=== PATIENT | male | born 1945 | race Caucasian/White ===

== ENCOUNTER 2018-10-15 20:17 | Inpatient (IN) | payer MEDICARE ==
[~2018-10-15] VITALS: Ht 177.8 cm; Wt 62.6 kg
[2018-10-15] MEDS ORDERED: ACET-2154 PO (20:38)
[2018-10-15 21:05] LABS: BASOPHILS % (AUTO) 0.3 % (0.0-2.0); EOSINOPHILS # (AUTO) 0.1 K/uL (0.0-0.7); EOSINOPHILS % (AUTO) 2.2 % (0.0-7.0); HEMOGLOBIN 9.7 g/dL (12.5-16.3); LYMPHOCYTES % (AUTO) 16.8 % (20.5-51.5); MEAN CORPUSCULAR HEMOGLOBIN 29.1 uug (23.8-33.4); MEAN CORPUSCULAR HGB CONC 33 g/dL (32.5-36.3); MEAN CORPUSCULAR VOLUME 87.4 fL (73.0-96.2); MONOCYTES # (AUTO) 0.6 K/uL (2.0-10.0); MONOCYTES % (AUTO) 10.2 % (0.0-11.0); NEUTROPHILS # (AUTO) 4.3 K/uL (1.8-8.9); NEUTROPHILS % (AUTO) 70.5 % (38.5-71.5); PLATELET COUNT (AUTO) 137 K/uL (152-348); RED BLOOD CELL COUNT(AUTO) 3.32 MIL/uL (4.06-5.63); WHITE BLOOD COUNT (AUTO) 6.1 K/uL (3.6-10.2)
[2018-10-15 21:10] LABS: CARBON DIOXIDE 24 mmol/L (21-32); CHLORIDE 108 mmol/L (98-107); CREATININE 2.7 mg/dL (0.6-1.3); GLUCOSE 96 mg/dL (74-106); POTASSIUM 3.9 mmol/L (3.5-5.1); UREA NITROGEN, BLOOD 29 mg/dL (7-18)
[2018-10-15] MEDS ORDERED: LACT-47 PO (21:12)
[2018-10-15] MEDS ORDERED: ALLO100T PO (21:12)
[2018-10-15] MEDS ORDERED: BISA10SU12 RC (21:12)
[2018-10-15] MEDS ORDERED: CLON0.1T PO (21:12)
[2018-10-15] MEDS ORDERED: CALC-494 PO (21:12)
[2018-10-15] MEDS ORDERED: PROC10TA29 PO (21:12)
[2018-10-15] MEDS ORDERED: EPOE4000 IJ (21:12)
[2018-10-15] MEDS ORDERED: AMYL1CAP56 PO (21:12)
[2018-10-15] MEDS ORDERED: VENL37.515 PO (21:13)
[2018-10-15 21:16] LABS: *BILIRUBIN,URIN NEGATIVE (NEGATIVE); *BLOOD, URINE 2+ (NEGATIVE); *CLARITY,URINE CLOUDY (CLEAR); *COLOR,URINE YELLOW (YELLOW); *KETONES,URINE NEGATIVE (NEGATIVE); *UROBILINOGEN,URINE 0.2 E.U./dl (NORMAL); NITRITE, URINE POSITIVE (NEGATIVE); PH,URINE 5.5 (5.0-8.0); UGLUCOSE NEGATIVE (NEGATIVE)
[2018-10-15 21:16] LABS: ALANINE AMINOTRANSFERASE 9 U/L (16-63); ALKALINE PHOSPHATASE 73 U/L (50-136); ASPARTATE AMINOTRANSFERASE 11 U/L (15-37); BILIRUBIN,DIRECT 0.1 mg/dL (0.0-0.2); BILIRUBIN,TOTAL 0.3 mg/dL (0.2-1.0); TOTAL PROTEIN, SERUM 6.2 g/dL (6.4-8.2)
[2018-10-15 21:17] LABS: ACETAMINOPHEN < 2.0 ug/mL (10-30)
[2018-10-15 21:19] LABS: ETHANOL < 3 MG/DL (0-0)
[2018-10-15 21:22] LABS: LEUKOCYTE ESTERASE ,URINE 2+ (NEGATIVE)
[2018-10-15 21:24] LABS: BACTERIA,URINE MANY /HPF (NONE SEEN); WBC,URINE 80-100 /HPF (0-3)
[2018-10-15 21:27] LABS: *AMPHETAMINE, URINE NEGATIVE (NEGATIVE); *BARBITURATE, URINE NEGATIVE (NEGATIVE); *CANNABINOID, URINE NEGATIVE (NEGATIVE); *COCCAINE, URINE NEGATIVE (NEGATIVE); *OPIATE, URINE NEGATIVE (NEGATIVE); *PHENCYCLIDINE SCREEN,URINE NEGATIVE (NEGATIVE)
[2018-10-15] MEDS ORDERED: CEFTRIAXONE 1 G VIAL IM ONE (21:30)
[2018-10-15] MEDS ORDERED: FINA5TAB11 PO (21:33)
[2018-10-15] MEDS ORDERED: SACC250C PO (21:33)
[2018-10-15] MEDS ORDERED: TAMS-3 PO (21:33)
[2018-10-15] MEDS ORDERED: FERR325C PO (21:33)
[2018-10-15] MEDS ORDERED: NA P133E RC (21:33)
[2018-10-15] MEDS ORDERED: CEFTRIAXONE 1 G VIAL ONE (21:36)
[2018-10-15] MEDS ORDERED: LIDOCAINE HCL 1% 20 ML VIAL ONE (21:36)
[2018-10-15] MEDS ORDERED: FOLI1TAB16 PO (21:39)
[2018-10-15] MEDS ORDERED: MULT1TAB11 PO (21:39)
[2018-10-15] MEDS ORDERED: MELA1TAB PO (21:39)
[2018-10-15] MEDS ORDERED: MAGN400O6 PO (21:39)
[2018-10-15] MEDS ORDERED: GUAI118.5 PO (21:39)
[2018-10-15] MEDS ORDERED: OXYM30SP NS (21:39)
[2018-10-15] MEDS ORDERED: AMLO5TAB4 PO (21:39)
[2018-10-15] MEDS ORDERED: IPRA3AMP18 IH (21:39)
[2018-10-15] MEDS ORDERED: THIA100T13 PO (21:39)
[2018-10-15] MEDS ORDERED: METO25TA6 PO (21:39)
[2018-10-15] MEDS ORDERED: TRAM50TA PO (21:39)
[2018-10-15] MEDS ORDERED: LOPE2CAP40 PO (21:39)
[2018-10-15] MEDS ORDERED: ZOLPIDEM 5 MG TABLET PO PRN (22:00)
[2018-10-15] MEDS ORDERED: ACETAMINOPHEN 325 MG TABLET PO PRN (22:00)
[2018-10-15] MEDS ORDERED: MAG HYDROX/AL HYDROX/SIMETH 30 ML LIQUID UDC PO PRN (22:00)
[2018-10-15] MEDS ORDERED: MAGNESIUM HYDROXIDE 30 ML LIQUID UDC PO PRN (22:00)
[2018-10-15] MEDS ORDERED: hydrALAZINE HCL 10 MG TABLET PO ONE (22:35)
[2018-10-15] MEDS ORDERED: FLEET ENEMA 133 ML BOTTLE RC SCH (22:45)
[2018-10-15] MEDS ORDERED: GUAIFENESIN/DEXTROMETHORPHAN 5 ML UDC PO SCH (22:45)
[2018-10-15] MEDS ORDERED: BISACODYL 10 MG SUPP.RECT RC SCH (22:45)
[2018-10-15] MEDS ORDERED: OXYMETAZOLINE NASAL 0.05% 15 ML SPRAY NS PRN (22:45)
[2018-10-15] MEDS ORDERED: MAGNESIUM HYDROXIDE 30 ML LIQUID UDC PO SCH (22:45)
[2018-10-15] MEDS ORDERED: PROCHLORPERAZINE MALEATE 10 MG TABLET PO SCH (22:45)
[2018-10-15] MEDS ORDERED: TRAMADOL HCL 50 MG TABLET PO SCH (22:45)
[2018-10-15] MEDS ORDERED: ACETAMINOPHEN 325 MG TABLET PO SCH (22:45)
[2018-10-15] MEDS ORDERED: LOPERAMIDE HCL 2 MG CAPSULE PO SCH (22:45)
[2018-10-16 04:44] VITALS: BP 170/85
[2018-10-16 07:58] VITALS: BP 183/90
[2018-10-16] MEDS: FOLIC ACID 1 MG TABLET PO SCH (08:34)
[2018-10-16] MEDS: MULTIVIT, IRON, MIN NO. 8, FA TABLET PO SCH (08:34)
[2018-10-16] MEDS: THIAMINE HCL 100 MG TABLET PO SCH (08:34)
[2018-10-16] MEDS: FINASTERIDE 5 MG TABLET PO SCH (08:34)
[2018-10-16] MEDS: FERROUS SULFATE 325 MG TABEC PO SCH ×2 (08:34→18:01)
[2018-10-16] MEDS: TAMSULOSIN HCL 0.4 MG CAP.SR.24H PO SCH (08:34)
[2018-10-16] MEDS: CALCIUM CARBONATE 500 MG TABLET PO SCH (08:34)
[2018-10-16] MEDS: METOPROLOL TARTRATE 25 MG TABLET PO SCH ×2 (08:35→16:24)
[2018-10-16] MEDS: AMLODIPINE 5 MG TABLET PO SCH (08:36)
[2018-10-16] MEDS ORDERED: Medication Not On Formulary EA (Saccharomyces Boulardii (Florastor) 250 MG) PO SCH (09:00)
[2018-10-16] MEDS: NICOTINE 14 MG/24HR PATCH TD SCH (09:00)
[2018-10-16] MEDS ORDERED: COMPLEAT MODIFIED FORMULA 1000 ML LIQUID PO SCH (09:00)
[2018-10-16] MEDS: LIPASE/PROTEASE/AMYLASE 4200 UNITS CAPSULE.DR PO SCH ×3 (10:34→16:45)
[2018-10-16] MEDS: CULTURELLE CAPSULE PO SCH ×2 (10:35→20:13)
[2018-10-16] MEDS: CEphaleXIN 500 MG CAPSULE PO SCH ×2 (11:36→16:23)
[2018-10-16 16:17] VITALS: BP 183/89
[2018-10-16] MEDS: CLONIDINE HCL 0.1 MG TABLET PO SCH (16:24)
[2018-10-16 19:44] VITALS: BP 144/76
[2018-10-16] MEDS: QUETIAPINE FUMARATE 25 MG TABLET PO SCH (20:13)
[2018-10-16] MEDS: MELATONIN 3 MG TABLET PO SCH (20:13)
[2018-10-17 06:20] LABS: BASOPHILS % (AUTO) 0.2 % (0.0-2.0); EOSINOPHILS # (AUTO) 0.2 K/uL (0.0-0.7); HEMATOCRIT 27.9 % (36.7-47.1); HEMOGLOBIN 9.3 g/dL (12.5-16.3); LYMPHOCYTES # (AUTO) 0.9 K/uL (20.0-40.0); LYMPHOCYTES % (AUTO) 15.4 % (20.5-51.5); MEAN CORPUSCULAR HEMOGLOBIN 29.3 uug (23.8-33.4); MEAN CORPUSCULAR HGB CONC 34 g/dL (32.5-36.3); MEAN CORPUSCULAR VOLUME 87.5 fL (73.0-96.2); MONOCYTES # (AUTO) 0.6 K/uL (2.0-10.0); MONOCYTES % (AUTO) 10.4 % (0.0-11.0); NEUTROPHILS # (AUTO) 4.2 K/uL (1.8-8.9); PLATELET COUNT (AUTO) 132 K/uL (152-348); RED BLOOD CELL COUNT(AUTO) 3.19 MIL/uL (4.06-5.63); WHITE BLOOD COUNT (AUTO) 5.9 K/uL (3.6-10.2)
[2018-10-17 06:58] LABS: IRON, SERUM 37 ug/dL (50-175)
[2018-10-17 07:02] LABS: ALANINE AMINOTRANSFERASE 8 U/L (16-63); ALKALINE PHOSPHATASE 76 U/L (50-136); ASPARTATE AMINOTRANSFERASE 10 U/L (15-37); BILIRUBIN,TOTAL 0.4 mg/dL (0.2-1.0); CARBON DIOXIDE 25 mmol/L (21-32); CHLORIDE 108 mmol/L (98-107); CREATININE 2.9 mg/dL (0.6-1.3); FERRITIN 58 ng/mL (26-388); GLUCOSE 95 mg/dL (74-106); MAGNESIUM 1.6 mg/dL (1.8-2.4); PHOSPHOROUS 3.9 mg/dL (2.5-4.9); TOTAL PROTEIN, SERUM 5.9 g/dL (6.4-8.2); UREA NITROGEN, BLOOD 34 mg/dL (7-18)
[2018-10-17 07:37] LABS: CREATINE KINASE, TOTAL 89 U/L (39-308)
[2018-10-17 08:23] VITALS: BP 169/80
[2018-10-17] MEDS: FOLIC ACID 1 MG TABLET PO SCH (08:24)
[2018-10-17] MEDS: CEphaleXIN 500 MG CAPSULE PO SCH ×2 (08:24→16:25)
[2018-10-17] MEDS: VENLAFAXINE XR 37.5 MG CAP.SR.24H PO SCH (08:25)
[2018-10-17] MEDS: MULTIVIT, IRON, MIN NO. 8, FA TABLET PO SCH (08:25)
[2018-10-17] MEDS: METOPROLOL TARTRATE 25 MG TABLET PO SCH (08:26)
[2018-10-17] MEDS: TAMSULOSIN HCL 0.4 MG CAP.SR.24H PO SCH (08:26)
[2018-10-17] MEDS: AMLODIPINE 5 MG TABLET PO SCH (08:27)
[2018-10-17] MEDS: THIAMINE HCL 100 MG TABLET PO SCH (08:27)
[2018-10-17] MEDS: FERROUS SULFATE 325 MG TABEC PO SCH ×2 (08:27→17:14)
[2018-10-17] MEDS: CULTURELLE CAPSULE PO SCH ×2 (08:28→20:15)
[2018-10-17] MEDS: CALCIUM CARBONATE 500 MG TABLET PO SCH (08:28)
[2018-10-17] MEDS: FINASTERIDE 5 MG TABLET PO SCH (08:29)
[2018-10-17] MEDS: LIPASE/PROTEASE/AMYLASE 4200 UNITS CAPSULE.DR PO SCH ×3 (08:29→16:25)
[2018-10-17] MEDS: NICOTINE 14 MG/24HR PATCH TD SCH (09:00)
[2018-10-17] MEDS ORDERED: MAGNESIUM OXIDE 400 MG TABLET PO ONE (09:00)
[2018-10-17 16:21] VITALS: BP 168/73
[2018-10-17] MEDS: METOPROLOL TARTRATE 50 MG TABLET PO SCH (16:26)
[2018-10-17] MEDS: CLONIDINE HCL 0.1 MG TABLET PO SCH (16:27)
[2018-10-17] MEDS ORDERED: METOPROLOL TARTRATE 25 MG TABLET PO SCH (17:00)
[2018-10-17 19:43] VITALS: BP 148/70
[2018-10-17] MEDS: MELATONIN 3 MG TABLET PO SCH (20:11)
[2018-10-17] MEDS: QUETIAPINE FUMARATE 25 MG TABLET PO SCH (20:14)
[2018-10-18 06:42] LABS: BASOPHILS % (AUTO) 0.3 % (0.0-2.0); EOSINOPHILS # (AUTO) 0.2 K/uL (0.0-0.7); EOSINOPHILS % (AUTO) 3.3 % (0.0-7.0); HEMATOCRIT 26.7 % (36.7-47.1); HEMOGLOBIN 8.9 g/dL (12.5-16.3); LYMPHOCYTES % (AUTO) 18.9 % (20.5-51.5); MEAN CORPUSCULAR HEMOGLOBIN 29.2 uug (23.8-33.4); MEAN CORPUSCULAR HGB CONC 33 g/dL (32.5-36.3); MEAN CORPUSCULAR VOLUME 87.5 fL (73.0-96.2); MONOCYTES # (AUTO) 0.6 K/uL (2.0-10.0); MONOCYTES % (AUTO) 10.8 % (0.0-11.0); NEUTROPHILS # (AUTO) 3.7 K/uL (1.8-8.9); NEUTROPHILS % (AUTO) 66.7 % (38.5-71.5); PLATELET COUNT (AUTO) 128 K/uL (152-348); RED BLOOD CELL COUNT(AUTO) 3.06 MIL/uL (4.06-5.63); WHITE BLOOD COUNT (AUTO) 5.5 K/uL (3.6-10.2)
[2018-10-18 07:03] LABS: CARBON DIOXIDE 24 mmol/L (21-32); CHLORIDE 108 mmol/L (98-107); CREATININE 2.8 mg/dL (0.6-1.3); GLUCOSE 96 mg/dL (74-106); MAGNESIUM 1.9 mg/dL (1.8-2.4); PHOSPHOROUS 3.9 mg/dL (2.5-4.9); POTASSIUM 4.1 mmol/L (3.5-5.1); UREA NITROGEN, BLOOD 39 mg/dL (7-18)
[2018-10-18 07:30] VITALS: BP 158/75
[2018-10-18] MEDS: CEphaleXIN 500 MG CAPSULE PO SCH ×2 (08:36→20:30)
[2018-10-18] MEDS: METOPROLOL TARTRATE 50 MG TABLET PO SCH ×2 (08:36→17:01)
[2018-10-18] MEDS: THIAMINE HCL 100 MG TABLET PO SCH (08:36)
[2018-10-18] MEDS: AMLODIPINE 10 MG TABLET PO SCH (08:36)
[2018-10-18] MEDS: FOLIC ACID 1 MG TABLET PO SCH (08:36)
[2018-10-18] MEDS: TAMSULOSIN HCL 0.4 MG CAP.SR.24H PO SCH (08:36)
[2018-10-18] MEDS: MULTIVIT, IRON, MIN NO. 8, FA TABLET PO SCH (08:36)
[2018-10-18] MEDS: VENLAFAXINE XR 37.5 MG CAP.SR.24H PO SCH (08:37)
[2018-10-18] MEDS: FERROUS SULFATE 325 MG TABEC PO SCH ×2 (08:37→17:01)
[2018-10-18] MEDS: CULTURELLE CAPSULE PO SCH ×2 (08:38→20:30)
[2018-10-18] MEDS: NICOTINE 14 MG/24HR PATCH TD SCH (08:39)
[2018-10-18] MEDS: CALCIUM CARBONATE 500 MG TABLET PO SCH (08:40)
[2018-10-18] MEDS: LIPASE/PROTEASE/AMYLASE 4200 UNITS CAPSULE.DR PO SCH ×3 (08:40→17:03)
[2018-10-18] MEDS ORDERED: AMLODIPINE 5 MG TABLET PO SCH (09:00)
[2018-10-18] MEDS: FINASTERIDE 5 MG TABLET PO SCH (09:00)
[2018-10-18 16:00] VITALS: BP 145/68
[2018-10-18 20:10] VITALS: BP 123/81
[2018-10-18] MEDS: MELATONIN 3 MG TABLET PO SCH (20:30)
[2018-10-18] MEDS: QUETIAPINE FUMARATE 25 MG TABLET PO SCH (20:30)
[2018-10-19 07:30] VITALS: BP 114/78
[2018-10-19] MEDS: VENLAFAXINE XR 37.5 MG CAP.SR.24H PO SCH (08:34)
[2018-10-19] MEDS: MULTIVIT, IRON, MIN NO. 8, FA TABLET PO SCH (08:34)
[2018-10-19] MEDS: FERROUS SULFATE 325 MG TABEC PO SCH ×2 (08:34→17:02)
[2018-10-19] MEDS: AMLODIPINE 10 MG TABLET PO SCH (08:34)
[2018-10-19] MEDS: THIAMINE HCL 100 MG TABLET PO SCH (08:34)
[2018-10-19] MEDS: TAMSULOSIN HCL 0.4 MG CAP.SR.24H PO SCH (08:34)
[2018-10-19] MEDS: CEphaleXIN 500 MG CAPSULE PO SCH ×2 (08:35→20:18)
[2018-10-19] MEDS: FOLIC ACID 1 MG TABLET PO SCH (08:35)
[2018-10-19] MEDS: METOPROLOL TARTRATE 50 MG TABLET PO SCH ×2 (08:35→17:02)
[2018-10-19] MEDS: CULTURELLE CAPSULE PO SCH ×2 (08:37→20:25)
[2018-10-19] MEDS: FINASTERIDE 5 MG TABLET PO SCH (08:37)
[2018-10-19] MEDS: CALCIUM CARBONATE 500 MG TABLET PO SCH (08:37)
[2018-10-19] MEDS: LIPASE/PROTEASE/AMYLASE 4200 UNITS CAPSULE.DR PO SCH ×3 (08:38→17:03)
[2018-10-19] MEDS: NICOTINE 14 MG/24HR PATCH TD SCH (08:38)
[2018-10-19 15:19] VITALS: BP 160/74
[2018-10-19 20:16] VITALS: BP 136/70
[2018-10-19] MEDS: QUETIAPINE FUMARATE 25 MG TABLET PO SCH (20:18)
[2018-10-19] MEDS: MELATONIN 3 MG TABLET PO SCH (20:25)
[2018-10-19] MEDS: LORAZEPAM 0.5 MG TABLET PO PRN (22:18)
[2018-10-20 05:09] LABS: A/G RATIO 1.2 (0.7-1.7); ALBUMIN 3.1 g/dL (2.9-4.4); ALPHA-1-GLOBULIN 0.2 g/dL (0.0-0.4); ALPHA-2-GLOBULIN 0.6 g/dL (0.4-1.0); BETA GLOBULIN 0.8 g/dL (0.7-1.3); GAMMA GLOBULIN 0.9 g/dL (0.4-1.8); GLOBULIN, TOTAL 2.6 g/dL (2.2-3.9); M-SPIKE Not Observed g/dL (Not Observed)
[2018-10-20 07:30] VITALS: BP 153/71
[2018-10-20] MEDS: FINASTERIDE 5 MG TABLET PO SCH (08:28)
[2018-10-20] MEDS: LIPASE/PROTEASE/AMYLASE 4200 UNITS CAPSULE.DR PO SCH ×3 (08:28→17:17)
[2018-10-20] MEDS: CULTURELLE CAPSULE PO SCH ×2 (08:28→21:16)
[2018-10-20] MEDS: CALCIUM CARBONATE 500 MG TABLET PO SCH (08:28)
[2018-10-20] MEDS: VENLAFAXINE XR 37.5 MG CAP.SR.24H PO SCH (08:29)
[2018-10-20] MEDS: AMLODIPINE 10 MG TABLET PO SCH (08:29)
[2018-10-20] MEDS: THIAMINE HCL 100 MG TABLET PO SCH (08:29)
[2018-10-20] MEDS: CEphaleXIN 500 MG CAPSULE PO SCH ×2 (08:30→21:16)
[2018-10-20] MEDS: METOPROLOL TARTRATE 50 MG TABLET PO SCH ×2 (08:30→17:15)
[2018-10-20] MEDS: FOLIC ACID 1 MG TABLET PO SCH (08:30)
[2018-10-20] MEDS: FERROUS SULFATE 325 MG TABEC PO SCH ×2 (08:30→17:16)
[2018-10-20] MEDS: MULTIVIT, IRON, MIN NO. 8, FA TABLET PO SCH (08:30)
[2018-10-20] MEDS: NICOTINE 14 MG/24HR PATCH TD SCH (08:30)
[2018-10-20] MEDS: TAMSULOSIN HCL 0.4 MG CAP.SR.24H PO SCH (08:30)
[2018-10-20] MEDS ORDERED: PROCHLORPERAZINE MALEATE 10 MG TABLET PO PRN (13:38)
[2018-10-20 15:34] VITALS: BP 149/66
[2018-10-20 19:44] VITALS: BP 146/75
[2018-10-20] MEDS: QUETIAPINE FUMARATE 25 MG TABLET PO SCH (21:16)
[2018-10-20] MEDS: MELATONIN 3 MG TABLET PO SCH (21:17)
[2018-10-20] MEDS: LORAZEPAM 0.5 MG TABLET PO PRN (23:39)
[2018-10-21 07:54] VITALS: BP 116/71
[2018-10-21] MEDS: FOLIC ACID 1 MG TABLET PO SCH (09:00)
[2018-10-21] MEDS: CEphaleXIN 500 MG CAPSULE PO SCH (09:00)
[2018-10-21] MEDS: TAMSULOSIN HCL 0.4 MG CAP.SR.24H PO SCH (09:00)
[2018-10-21] MEDS: NICOTINE 14 MG/24HR PATCH TD SCH (09:00)
[2018-10-21] MEDS: VENLAFAXINE XR 37.5 MG CAP.SR.24H PO SCH (09:00)
[2018-10-21] MEDS: MULTIVIT, IRON, MIN NO. 8, FA TABLET PO SCH (09:00)
[2018-10-21] MEDS: THIAMINE HCL 100 MG TABLET PO SCH (09:00)
[2018-10-21] MEDS: FERROUS SULFATE 325 MG TABEC PO SCH ×2 (09:00→17:16)
[2018-10-21] MEDS: CULTURELLE CAPSULE PO SCH ×2 (09:01→20:14)
[2018-10-21] MEDS: FINASTERIDE 5 MG TABLET PO SCH (09:01)
[2018-10-21] MEDS: CALCIUM CARBONATE 500 MG TABLET PO SCH (09:02)
[2018-10-21] MEDS: LIPASE/PROTEASE/AMYLASE 4200 UNITS CAPSULE.DR PO SCH ×3 (09:02→17:23)
[2018-10-21] MEDS: AMLODIPINE 10 MG TABLET PO SCH (09:03)
[2018-10-21] MEDS: METOPROLOL TARTRATE 50 MG TABLET PO SCH ×2 (09:04→17:18)
[2018-10-21 15:40] VITALS: BP 139/63
[2018-10-21 19:51] VITALS: BP 143/87
[2018-10-21] MEDS: QUETIAPINE FUMARATE 25 MG TABLET PO SCH (20:14)
[2018-10-21] MEDS: MELATONIN 3 MG TABLET PO SCH (20:14)
[2018-10-21 21:33] VITALS: BP 121/64
[2018-10-22] MEDS: NICOTINE 14 MG/24HR PATCH TD SCH (09:00)
[2018-10-22] MEDS: LIPASE/PROTEASE/AMYLASE 4200 UNITS CAPSULE.DR PO SCH ×3 (09:13→16:29)
[2018-10-22] MEDS: CULTURELLE CAPSULE PO SCH ×2 (09:13→21:18)
[2018-10-22] MEDS: TAMSULOSIN HCL 0.4 MG CAP.SR.24H PO SCH (09:13)
[2018-10-22] MEDS: FINASTERIDE 5 MG TABLET PO SCH (09:14)
[2018-10-22] MEDS: THIAMINE HCL 100 MG TABLET PO SCH (09:14)
[2018-10-22] MEDS: FERROUS SULFATE 325 MG TABEC PO SCH ×2 (09:14→17:27)
[2018-10-22] MEDS: MULTIVIT, IRON, MIN NO. 8, FA TABLET PO SCH (09:14)
[2018-10-22] MEDS: FOLIC ACID 1 MG TABLET PO SCH (09:14)
[2018-10-22] MEDS: CALCIUM CARBONATE 500 MG TABLET PO SCH (09:14)
[2018-10-22 09:23] LABS: CARBON DIOXIDE 27 mmol/L (21-32); CHLORIDE 106 mmol/L (98-107); CREATININE 2.7 mg/dL (0.6-1.3); GLUCOSE 96 mg/dL (74-106); POTASSIUM 4.3 mmol/L (3.5-5.1); UREA NITROGEN, BLOOD 44 mg/dL (7-18)
[2018-10-22] MEDS: AMLODIPINE 10 MG TABLET PO SCH (09:25)
[2018-10-22] MEDS: METOPROLOL TARTRATE 50 MG TABLET PO SCH ×2 (09:27→16:30)
[2018-10-22] MEDS ORDERED: TRAMADOL HCL 50 MG TABLET PO PRN (10:43)
[2018-10-22] MEDS ORDERED: GUAIFENESIN/DEXTROMETHORPHAN 5 ML UDC PO PRN (10:44)
[2018-10-22] MEDS ORDERED: BISACODYL 10 MG SUPP.RECT RC PRN (10:44)
[2018-10-22 10:49] VITALS: BP 159/71
[2018-10-22] MEDS: VENLAFAXINE XR 37.5 MG CAP.SR.24H PO SCH (11:01)
[2018-10-22] MEDS ORDERED: AMLO10TA7 PO (12:07)
[2018-10-22] MEDS ORDERED: METO50TA16 PO (12:07)
[2018-10-22 16:48] VITALS: BP 144/69
[2018-10-22 20:24] VITALS: BP 158/71
[2018-10-22] MEDS: QUETIAPINE FUMARATE 25 MG TABLET PO SCH (21:18)
[2018-10-22] MEDS: MELATONIN 3 MG TABLET PO SCH (21:18)
[2018-10-23 06:48] LABS: CARBON DIOXIDE 28 mmol/L (21-32); CHLORIDE 105 mmol/L (98-107); CREATININE 2.7 mg/dL (0.6-1.3); GLUCOSE 94 mg/dL (74-106); MAGNESIUM 1.9 mg/dL (1.8-2.4); PHOSPHOROUS 4.2 mg/dL (2.5-4.9); POTASSIUM 4.4 mmol/L (3.5-5.1); UREA NITROGEN, BLOOD 45 mg/dL (7-18)
[2018-10-23 07:47] LABS: BASOPHILS % (AUTO) 0.4 % (0.0-2.0); EOSINOPHILS # (AUTO) 0.2 K/uL (0.0-0.7); EOSINOPHILS % (AUTO) 2.6 % (0.0-7.0); HEMATOCRIT 27.9 % (36.7-47.1); HEMOGLOBIN 9.2 g/dL (12.5-16.3); LYMPHOCYTES % (AUTO) 14.5 % (20.5-51.5); MEAN CORPUSCULAR HEMOGLOBIN 28.9 uug (23.8-33.4); MEAN CORPUSCULAR HGB CONC 33 g/dL (32.5-36.3); MEAN CORPUSCULAR VOLUME 87.6 fL (73.0-96.2); MONOCYTES # (AUTO) 0.7 K/uL (2.0-10.0); NEUTROPHILS # (AUTO) 5.1 K/uL (1.8-8.9); NEUTROPHILS % (AUTO) 72.5 % (38.5-71.5); PLATELET COUNT (AUTO) 153 K/uL (152-348); RED BLOOD CELL COUNT(AUTO) 3.18 MIL/uL (4.06-5.63)
[2018-10-23] MEDS: NICOTINE 14 MG/24HR PATCH TD SCH (09:00)
[2018-10-23] MEDS: MULTIVIT, IRON, MIN NO. 8, FA TABLET PO SCH (10:02)
[2018-10-23] MEDS: CALCIUM CARBONATE 500 MG TABLET PO SCH (10:02)
[2018-10-23] MEDS: CULTURELLE CAPSULE PO SCH (10:02)
[2018-10-23] MEDS: TAMSULOSIN HCL 0.4 MG CAP.SR.24H PO SCH (10:02)
[2018-10-23] MEDS: FERROUS SULFATE 325 MG TABEC PO SCH (10:02)
[2018-10-23] MEDS: CLONIDINE HCL 0.1 MG TABLET PO SCH (10:02)
[2018-10-23] MEDS: AMLODIPINE 10 MG TABLET PO SCH (10:03)
[2018-10-23] MEDS: METOPROLOL TARTRATE 50 MG TABLET PO SCH (10:03)
[2018-10-23] MEDS: THIAMINE HCL 100 MG TABLET PO SCH (10:03)
[2018-10-23] MEDS: FOLIC ACID 1 MG TABLET PO SCH (10:03)
[2018-10-23] MEDS: LIPASE/PROTEASE/AMYLASE 4200 UNITS CAPSULE.DR PO SCH ×2 (10:03→13:56)
[2018-10-23] MEDS: VENLAFAXINE XR 37.5 MG CAP.SR.24H PO SCH (10:04)
[2018-10-23] MEDS: FINASTERIDE 5 MG TABLET PO SCH (10:05)
[2018-10-23 11:43] VITALS: BP 155/73
== END 2018-10-23 15:40 | disposition home or self-care (01) | DRG 885 ==
LOC: ER 20:17 → GPS 21:57 → GPSOV3 10-21 21:21
PROVIDERS: ADMIT Psychiatry & Neurology Psychiatry; ATTEND Nurse Practitioner Acute Care
DX: F31.5 Bipolar disorder, current episode depressed, severe, with psychotic features (principal); N17.0 Acute kidney failure with tubular necrosis; N39.0 Urinary tract infection, site not specified; E44.0 Moderate protein-calorie malnutrition; Z68.1 Body mass index [BMI] 19.9 or less, adult; N40.0 Benign prostatic hyperplasia without lower urinary tract symptoms; J44.9 Chronic obstructive pulmonary disease, unspecified; K21.9 Gastro-esophageal reflux disease without esophagitis; D63.8 Anemia in other chronic diseases classified elsewhere; M10.9 Gout, unspecified; I12.9 Hypertensive chronic kidney disease with stage 1 through stage 4 chronic kidney disease, or unspecified chronic kidney disease; N18.1 Chronic kidney disease, stage 1; Z79.899 Other long term (current) drug therapy; Z79.51 Long term (current) use of inhaled steroids; M47.9 Spondylosis, unspecified; I70.0 Atherosclerosis of aorta
CPT/HCPCS: 36415; 71045; 80307; 83550; 83735; 83970; 84100; 84155; 84165; 84443; 85025; 87077; 87086; 97116; 97530; A4663; G0480; G0480-TC; J0696; J3490